=== PATIENT | female | born 1955 | race Hispanic/Latino ===

== ENCOUNTER 2024-09-22 14:43 | Outpatient (CLI) | payer MEDICARE, MEDICAID | END 2024-09-22 14:44 | disposition home or self-care (01) | LOC: CSHWCC 14:43 | PROVIDERS: ATTEND Nurse Practitioner Family | DX: E11.622 Type 2 diabetes mellitus with other skin ulcer (principal); L97.121 Non-pressure chronic ulcer of left thigh limited to breakdown of skin; C85.9A Non-Hodgkin lymphoma, unspecified, in remission; D50.9 Iron deficiency anemia, unspecified | CPT/HCPCS: 11042; 11045 ==

== ENCOUNTER 2024-09-29 10:44 | Outpatient (CLI) | payer MEDICARE, MEDICAID | END 2024-09-29 10:45 | disposition home or self-care (01) | LOC: CSHWCC 10:44 | PROVIDERS: ATTEND Nurse Practitioner Family | DX: E11.622 Type 2 diabetes mellitus with other skin ulcer (principal); L97.121 Non-pressure chronic ulcer of left thigh limited to breakdown of skin; D50.9 Iron deficiency anemia, unspecified; C85.9A Non-Hodgkin lymphoma, unspecified, in remission | CPT/HCPCS: 11042; 11045 ==

== ENCOUNTER 2024-10-13 10:27 | Outpatient (CLI) | payer MEDICARE, MEDICAID | END 2024-10-13 10:28 | disposition home or self-care (01) | LOC: CSHWCC 10:27 | PROVIDERS: ATTEND Nurse Practitioner Family | DX: E11.622 Type 2 diabetes mellitus with other skin ulcer (principal); L97.121 Non-pressure chronic ulcer of left thigh limited to breakdown of skin; D50.9 Iron deficiency anemia, unspecified; C85.9A Non-Hodgkin lymphoma, unspecified, in remission | CPT/HCPCS: 11042; 11045 ==

== ENCOUNTER 2024-10-28 09:49 | Day surgery (SDC) | payer MEDICARE, MEDICAID ==
[2024-10-26 09:48] VITALS: BMI 26.2
[2024-10-28] MEDS ORDERED: CEFAZOLIN 2 GM VIAL ONE (12:44)
[2024-10-28] MEDS ORDERED: Lidocaine 1% PF 5 ML VIAL ONE (13:03)
[2024-10-28] MEDS ORDERED: Ondansetron PF 4 MG/2 ML Vial ONE (13:03)
[2024-10-28] MEDS ORDERED: PROPOFOL 20 ML ONE (13:03)
[2024-10-28] MEDS ORDERED: HYDROcodone/Acetaminophen 5/325 mg Tablet ONE (15:31)
[2024-10-28] MEDS ORDERED: Lidocaine 1% w/Epinephrine 1:200K 30 ML VIAL ONE (17:34)
[2024-10-28] MEDS ORDERED: Lidocaine 2% MPF 10 ML AMP (For Epidural Use) ONE (17:34)
== END 2024-10-28 18:25 | disposition home or self-care (01) ==
LOC: CSHSDC 09:49
PROVIDERS: ATTEND Surgery
DX: L97.922 Non-pressure chronic ulcer of unspecified part of left lower leg with fat layer exposed (principal)
CPT/HCPCS: 11043; 82962; 97139; J0665; J2405; J2704; J3010; 36416; 88305

== ENCOUNTER 2024-10-29 14:03 | Emergency (ER) | payer MEDICARE, MEDICAID | END 2024-10-29 15:43 | disposition home or self-care (01) | LOC: CSHERS 14:03 | DX: T85.698A Other mechanical complication of other specified internal prosthetic devices, implants and grafts, initial encounter (principal); L76.22 Postprocedural hemorrhage of skin and subcutaneous tissue following other procedure; C83.30 Diffuse large B-cell lymphoma, unspecified site; I10 Essential (primary) hypertension; E11.9 Type 2 diabetes mellitus without complications | CPT/HCPCS: 99283 ==

== ENCOUNTER 2024-11-03 14:34 | Outpatient (CLI) | payer MEDICARE, MEDICAID | END 2024-11-03 14:35 | disposition home or self-care (01) | LOC: CSHWCC 14:34 | PROVIDERS: ATTEND Nurse Practitioner Family | DX: T81.328D Disruption or dehiscence of closure of other specified internal operation (surgical) wound, subsequent encounter (principal); E11.622 Type 2 diabetes mellitus with other skin ulcer; L97.121 Non-pressure chronic ulcer of left thigh limited to breakdown of skin; D50.9 Iron deficiency anemia, unspecified; C85.9A Non-Hodgkin lymphoma, unspecified, in remission | CPT/HCPCS: 97606; G0463; 99212 ==

== ENCOUNTER 2024-11-11 14:59 | Outpatient (CLI) | payer MEDICARE, MEDICAID | END 2024-11-11 15:00 | disposition home or self-care (01) | LOC: CSHWCC 14:59 | PROVIDERS: ATTEND Nurse Practitioner Family | DX: T81.328D Disruption or dehiscence of closure of other specified internal operation (surgical) wound, subsequent encounter (principal); E11.622 Type 2 diabetes mellitus with other skin ulcer; L97.121 Non-pressure chronic ulcer of left thigh limited to breakdown of skin; D50.9 Iron deficiency anemia, unspecified; C85.9A Non-Hodgkin lymphoma, unspecified, in remission | CPT/HCPCS: 11042; 11045; 97606 ==

== ENCOUNTER 2024-11-25 14:29 | Outpatient (CLI) | payer MEDICARE, OTHER | END 2024-11-25 14:30 | disposition home or self-care (01) | LOC: CSHWCC 14:29 | PROVIDERS: ATTEND Nurse Practitioner Family | DX: T81.328D Disruption or dehiscence of closure of other specified internal operation (surgical) wound, subsequent encounter (principal); E11.622 Type 2 diabetes mellitus with other skin ulcer; L97.121 Non-pressure chronic ulcer of left thigh limited to breakdown of skin; D50.9 Iron deficiency anemia, unspecified; C85.9A Non-Hodgkin lymphoma, unspecified, in remission | CPT/HCPCS: 11042; 11045; 97606; 99213; G0463 ==

== ENCOUNTER 2024-12-02 14:31 | Outpatient (CLI) | payer MEDICARE, MEDICAID | END 2024-12-02 14:32 | disposition home or self-care (01) | LOC: CSHWCC 14:31 | PROVIDERS: ATTEND Nurse Practitioner Family | DX: T81.328D Disruption or dehiscence of closure of other specified internal operation (surgical) wound, subsequent encounter (principal); E11.622 Type 2 diabetes mellitus with other skin ulcer; L97.121 Non-pressure chronic ulcer of left thigh limited to breakdown of skin; D50.9 Iron deficiency anemia, unspecified; C85.9A Non-Hodgkin lymphoma, unspecified, in remission | CPT/HCPCS: 11042; 11045; 97606 ==

== ENCOUNTER 2024-12-09 14:44 | Outpatient (CLI) | payer MEDICARE, MEDICAID | END 2024-12-09 14:45 | disposition home or self-care (01) | LOC: CSHWCC 14:44 | PROVIDERS: ATTEND Nurse Practitioner Family | DX: T81.328D Disruption or dehiscence of closure of other specified internal operation (surgical) wound, subsequent encounter (principal); E11.622 Type 2 diabetes mellitus with other skin ulcer; L97.121 Non-pressure chronic ulcer of left thigh limited to breakdown of skin; D50.9 Iron deficiency anemia, unspecified; C85.9A Non-Hodgkin lymphoma, unspecified, in remission | CPT/HCPCS: 11042; 11045; 97606 ==

== ENCOUNTER 2024-12-30 14:30 | Outpatient (CLI) | payer MEDICARE, OTHER, MEDICAID | END 2024-12-30 14:31 | disposition home or self-care (01) | LOC: CSHWCC 14:30 | PROVIDERS: ATTEND Nurse Practitioner Family | DX: E11.622 Type 2 diabetes mellitus with other skin ulcer (principal); L97.121 Non-pressure chronic ulcer of left thigh limited to breakdown of skin; T81.328D Disruption or dehiscence of closure of other specified internal operation (surgical) wound, subsequent encounter; D50.9 Iron deficiency anemia, unspecified; C85.9A Non-Hodgkin lymphoma, unspecified, in remission | CPT/HCPCS: 11042; 11045; 97606 ==

== ENCOUNTER 2025-01-13 14:36 | Outpatient (CLI) | payer MEDICARE, OTHER, MEDICAID | END 2025-01-13 14:37 | disposition home or self-care (01) | LOC: CSHWCC 14:36 | PROVIDERS: ATTEND Nurse Practitioner Family | DX: T81.328D Disruption or dehiscence of closure of other specified internal operation (surgical) wound, subsequent encounter (principal); E11.622 Type 2 diabetes mellitus with other skin ulcer; L97.121 Non-pressure chronic ulcer of left thigh limited to breakdown of skin; D50.9 Iron deficiency anemia, unspecified; C85.9A Non-Hodgkin lymphoma, unspecified, in remission | CPT/HCPCS: 11042; 11045; 97606; G0463; 99213 ==

== ENCOUNTER 2025-01-26 07:33 | Day surgery (SDC) | payer MEDICARE, MEDICAID ==
[2025-01-25 10:08] VITALS: BMI 24.3
[2025-01-26 08:03] LABS: Hematocrit 30.1 % (34.9-44.5); Hemoglobin 9.4 g/dL (12.0-15.5); Mean Corpuscular Hemoglobin 28.9 pg (27.0-33.0); Mean Corpuscular Volume 92.6 fL (81.6-98.3); Platelet Count 281 10x3/uL (150-450); Red Blood Cell (RBC) Count 3.25 10x6/uL (3.90-5.03); White Blood Cell (WBC) Count 6.21 10x3/uL (3.5-10.5)
[2025-01-26 08:15] LABS: Anion Gap 12 mmol/L (10-20); BUN (Urea Nitrogen) 26 mg/dL (9.8-20.1); Calc. Creatinine Clearance 84 mL/min (70-130); Calcium 8.8 mg/dL (7.8-10.44); Carbon Dioxide 26 mmol/L (23-31); Chloride 107 mmol/L (98-107); Glucose 125 mg/dL (80-115); Potassium 4.3 mmol/L (3.5-5.1); Sodium 141 mmol/L (136-145)
[2025-01-26] MEDS ORDERED: Bupivacaine/Epinephrine 0.25% 30 ML VIAL ONE (08:55)
[2025-01-26] MEDS ORDERED: Rocuronium Bromide 10 MG/ML (10ML VIAL) ONE (08:58)
[2025-01-26] MEDS ORDERED: SUGAMMADEX SODIUM 200 MG/2 ML VIAL ONE (08:58)
[2025-01-26] MEDS ORDERED: PROPOFOL 40 ML ONE (08:58)
[2025-01-26] MEDS ORDERED: Lidocaine 2% PF 100 mg/5 ml Syringe ONE (08:58)
[2025-01-26] MEDS ORDERED: Ketorolac Tromethamine 30 MG (1 mL) VIAL ONE (08:58)
[2025-01-26] MEDS ORDERED: CEFAZOLIN 2 GM VIAL ONE (10:03)
[2025-01-26] MEDS ORDERED: Phenylephrine 40 MG/NS 250 ML 250 ML ONE (10:41)
[2025-01-26] MEDS ORDERED: HYDROcodone/Acetaminophen 5/325 mg Tablet ONE (12:46)
== END 2025-01-26 13:25 | disposition home or self-care (01) ==
LOC: CSHSDC 07:33
PROVIDERS: ATTEND Surgery
PROC: 0HRJX74 Replacement of Left Upper Leg Skin with Autologous Tissue Substitute, Partial Thickness, External Approach (ICD-10-PCS; principal; 2025-01-26)
DX: T81.89XA Other complications of procedures, not elsewhere classified, initial encounter (principal); I10 Essential (primary) hypertension; E11.622 Type 2 diabetes mellitus with other skin ulcer; E11.59 Type 2 diabetes mellitus with other circulatory complications; E78.00 Pure hypercholesterolemia, unspecified; Z90.89 Acquired absence of other organs; Z98.890 Other specified postprocedural states; Z79.4 Long term (current) use of insulin; Z79.84 Long term (current) use of oral hypoglycemic drugs; Z79.899 Other long term (current) drug therapy; Y83.8 Other surgical procedures as the cause of abnormal reaction of the patient, or of later complication, without mention of misadventure at the time of the procedure
CPT/HCPCS: 15100; 80048; 82962; 85027; 93005; J2003; J2250; J2704; J3010; 36415; 36416; 93010; J0169; J1100; J1885

== ENCOUNTER 2025-02-10 14:45 | Outpatient (CLI) | payer MEDICARE | END 2025-02-10 14:46 | disposition home or self-care (01) | LOC: CSHWCC 14:45 | PROVIDERS: ATTEND Nurse Practitioner Family | DX: E11.622 Type 2 diabetes mellitus with other skin ulcer (principal); L97.121 Non-pressure chronic ulcer of left thigh limited to breakdown of skin; T81.328D Disruption or dehiscence of closure of other specified internal operation (surgical) wound, subsequent encounter; D50.9 Iron deficiency anemia, unspecified; C85.9A Non-Hodgkin lymphoma, unspecified, in remission | CPT/HCPCS: 99213; G0463 ==